=== PATIENT | female | born 2000 | race Caucasian/White ===

== ENCOUNTER 2019-08-05 12:05 | Emergency (ER) | payer OTHER ==
[~2019-08-05] VITALS: Ht 160 cm; Wt 59.0 kg
[2019-08-05 12:15] VITALS: BP 107/66
[2019-08-05 13:09] LABS: MONONUCLEOSIS PATIENT NEGATIVE (NEGATIVE)
--- NOTE | 2019-08-05 14:14 | PHYS DOC ---
Past History Past Medical History: No Pertinent History Past Surgical History: No Surgical History Alcohol Use: None Adult General Chief Complaint Chief Complaint: SORE THROAT HPI HPI 18-year-old female presents with sore throat, cough, body aches for the last 5 days. Her symptoms were mild so she did not think much of it. The last couple days she is felt more fatigued and had more cramping along with her sore throat. A few people at work have had strep so she wanted to get checked for strep throat. The patient does work as a guard in a shelter. They do believe they now have 1 positive coronavirus person in the shelter. She does not know who that is and she does not know if she is come in contact with that person. She has a roommate who is also sick with a similar illness. She does not have a fever today, but had a low-grade fever yesterday. She has no other complaints at this time. Review of Systems Review of Systems Constitutional: Fever [] Eyes: Denies change in visual acuity, redness, or eye pain [] HENT: sore throat [] Respiratory: Cough without shortness of breath [] Cardiovascular: No additional information not addressed in HPI [] GI: Denies abdominal pain, nausea, vomiting, bloody stools or diarrhea [] : Denies dysuria or hematuria [] Musculoskeletal: Denies back pain or joint pain [] Integument: Denies rash or skin lesions [] Neurologic: Denies headache, focal weakness or sensory changes [] Endocrine: Denies polyuria or polydipsia [] All other systems were reviewed and found to be within normal limits, except as documented in this note. Allergies Allergies Allergies Coded Allergies Type Severity Reaction Last Updated Verified No Known Drug Allergies 08/05/19 No Physical Exam Physical Exam Constitutional: Well developed, well nourished, no acute distress, non-toxic appearance. [] HENT: Normocephalic, atraumatic, bilateral external ears normal, oropharynx mildly erythematous, no oral exudates, nose normal. [] Eyes: PERRLA, EOMI, conjunctiva normal, no discharge. [] Neck: Normal range of motion, no tenderness, supple, no stridor. [] Cardiovascular: Heart rate regular rhythm, no murmur [] Lungs & Thorax: Bilateral breath sounds clear to auscultation [] Abdomen: Bowel sounds normal, soft, no tenderness, no masses, no pulsatile masses. [] Skin: Warm, dry, no erythema, no rash. [] Back: No tenderness, no CVA tenderness. [] Extremities: No tenderness, no cyanosis, no clubbing, ROM intact, no edema. [] Neurologic: Alert and oriented X 3, normal motor function, normal sensory function, no focal deficits noted. [] Psychologic: Affect normal, judgement normal, mood normal. [] Current Patient Data Vital Signs Vital Signs Date Time Temp Pulse Resp B/P (MAP) Pulse Ox O2 Delivery O2 Flow Rate FiO2 08/05/19 12:15 97.9 75 18 107/66 (80) 99 Room Air Lab Results Laboratory Tests Test 08/05/19 12:42 08/05/19 12:52 Group A Streptococcus Rapid Negative (NEGATIVE) Heterophil Agglutinins Negative (NEGATIVE) EKG EKG [] Radiology/Procedures Radiology/Procedures [] Course & Med Decision Making Course & Med Decision Making Pertinent Labs and Imaging studies reviewed. (See chart for details) The patient's symptoms are concerning for COVID 19. Her rapid strep is negative. Mononucleosis is negative. In her age group mild symptoms are very common. I have advised that she go ahead and quarantine herself as well as her roommate until they are both completely well for at least 3 days. The patient is in agreement with this plan. If her condition worsens she will call her physician. She is stable for discharge at this time. [] Dragon Disclaimer Dragon Disclaimer This electronic medical record was generated, in whole or in part, using a voice recognition dictation system. Departure Departure: Impression: Primary Impression: COVID-19 Disposition: HOME, SELF-CARE Condition: STABLE Referrals: PCP,UNKNOWN (PCP) Patient Instructions: Viral Syndrome Additional Instructions: You should self quarantine at home. Wear a mask as much as possible. Definitely wear a mask if you have to leave your household. You should not go back to work or be around other people until you are completely symptom-free for at least 3 days. If your condition worsens, you should call your physician or local emergency room first. If you believe you have a life-threatening change in your illness, dial 911. LARISA DAILY DO Aug 05, 2019 14:14
== END 2019-08-05 14:20 | disposition home or self-care (01) ==
LOC: ER 12:05
DX: U07.1 COVID-19 (principal); J02.9 Acute pharyngitis, unspecified
CPT/HCPCS: 86308; 87070; 87880; 99283

== ENCOUNTER 2020-03-10 17:21 | Emergency (ER) | payer OTHER ==
[~2020-03-10] VITALS: Ht 160 cm; Wt 61.0 kg
[2020-03-10 18:58] LABS: BASO % 0 % (0-3); EOS # 0.3 x10^3/uL (0.0-0.7); EOS % 3 % (0-3); HEMATOCRIT 40.2 % (36.0-47.0); HEMOGLOBIN 13.7 g/dL (12.0-15.5); LYMPH # 2.1 x10^3/uL (1.0-4.8); LYMPH % 21 % (24-48); MEAN CORPUSCULAR HEMOGLOBIN 32 pg (25-35); MEAN CORPUSCULAR HGB CONC 34 g/dL (31-37); MEAN CORPUSCULAR VOLUME 93 fL (79-100); MONO # 0.7 x10^3/uL (0.0-1.1); MONO % 7 % (0-9); NEUT # 6.8 x10^3uL (1.8-7.7); NEUT % 68 % (31-73); PLATELET COUNT 280 x10^3/uL (140-400); RED BLOOD COUNT 4.34 x10^6/uL (3.50-5.40); RED CELL DISTRIBUTION WIDTH 12.4 % (11.5-14.5); WHITE BLOOD COUNT 9.9 x10^3/uL (4.0-11.0)
--- NOTE | 2020-03-10 18:58 | PHYS DOC ---
Past History Past Medical History: No Pertinent History (MEHRDAD GEE APRN) Past Surgical History: No Surgical History, Other Additional Past Surgical Histo: Hysteroscopy 01/19/2020 (MEHRDAD GEE APRN) Alcohol Use: None (MEHRDAD GEE APRN) Adult General Chief Complaint Chief Complaint: [facility]ED[facility] HPI Patient is a 19-year-old female patient presents with vaginal bleeding. Patient reports over the last couple days, she has had some spotting, however the last 2 days she has had more more vaginal bleeding. States been less heavy than usual. States she just had a cystoscopy recently in January during which a polyp was removed. States she has had no issues since then, however she has also not had menstrual cycles on the time. Reports she has been on control, however is has been switching control medications several times for the last 2 months, last switched right before her procedure. States she continues to be sexually active. Denies any dysuria, denies any other vaginal symptoms. States she is more concerned because she has not had a menstrual cycle since her procedure and this seemed to be little more bleeding than usual. Patient denies additional complaints (MEHRDAD GEE APRN) Review of Systems Review of Systems Constitutional: Denies fever or chills [] Eyes: Denies change in visual acuity, redness, or eye pain [] HENT: Denies nasal congestion or sore throat [] Respiratory: Denies cough or shortness of breath [] Cardiovascular: No additional information not addressed in HPI [] GI: Denies abdominal pain, nausea, vomiting, bloody stools or diarrhea [] : Denies dysuria or hematuria [does report vaginal bleeding and lower abdominal cramping since yesterday] Musculoskeletal: Denies back pain or joint pain [] Integument: Denies rash or skin lesions [] Neurologic: Denies headache, focal weakness or sensory changes [] Endocrine: Denies polyuria or polydipsia [] All other systems were reviewed and found to be within normal limits, except as documented in this note. (MEHRDAD GEE APRN) Allergies Allergies Allergies Coded Allergies Type Severity Reaction Last Updated Verified No Known Drug Allergies 03/10/20 No (MEHRDAD GEE APRN) Physical Exam Physical Exam Constitutional: Well developed, well nourished, no acute distress, non-toxic appearance. [] HENT: Normocephalic, atraumatic, bilateral external ears normal, oropharynx moist, no oral exudates, nose normal. [] Eyes: PERRLA, EOMI, conjunctiva normal, no discharge. [] Neck: Normal range of motion, no tenderness, supple, no stridor. [] Cardiovascular:Heart rate regular rhythm, no murmur [] Lungs & Thorax: Bilateral breath sounds clear to auscultation [] Abdomen: Bowel sounds normal, soft, no tenderness, no masses, no pulsatile masses. [] Skin: Warm, dry, no erythema, no rash. [] Back: No tenderness, no CVA tenderness. [] Extremities: No tenderness, no cyanosis, no clubbing, ROM intact, no edema. [] Neurologic: Alert and oriented X 3, normal motor function, normal sensory function, no focal deficits noted. [] Psychologic: Affect normal, judgement normal, mood normal. [] (MEHRDAD GEE APRN) Current Patient Data Vital Signs Vital Signs Date Time Temp Pulse Resp B/P (MAP) Pulse Ox O2 Delivery O2 Flow Rate FiO2 03/10/20 17:35 97.9 88 14 124/73 (90) 98 Lab Results Laboratory Tests Test 03/10/20 18:00 POC Urine HCG, Qualitative hcg positive (Negative) (MEHRDAD GEE APRN) EKG EKG [] (MEHRDAD GEE APRN) Radiology/Procedures Radiology/Procedures PROCEDURE: OB <14 WKS W/TV EXAM: First Trimester OB Ultrasound INDICATION: Reason: Vaginal bleeding in / Spl. Instructions: / History: Vaginal bleeding with positive hCG. Patient believes her LMP was in January but is not sure which day. TECHNIQUE: Real-time first trimester obstetrical ultrasound was performed with permanent freeze-frame documentation. COMPARISON: None. FINDINGS: GESTATIONAL SAC: No intrauterine gestation is identified. POLE: Not visualized No yolk sac identified CROWN RUMP LENGTH: Not applicable HEART RATE: Not applicable PLACENTA: Not visualized MATERNAL UTERUS: Uterus measures 7.8 x 4.5 x 3.8 cm. MATERNAL ADNEXA: The right ovary measures 2.9 x 1.5 x 1.9 cm and shows normal blood flow. No right adnexal mass. The left ovary measures 2.6 x 1.7 x 1.4 cm and demonstrates normal blood flow. No left adnexal mass. No pelvic free fluid. AGE/DATES: Gestational Age by LMP: Uncertain Gestational Age by US: Not determined EDC by LMP: Uncertain EDC by US: Undetermined IMPRESSION: No intrauterine gestation or evidence of an adnexal mass. Recommend correlation with serial beta hCG measurements and follow-up ultrasound as clinically appropriate.. Electronically signed by: Ike Aguilar MD (03/10/2020 8:20 PM) [facility] (MEHRDAD GEE APRN) Heart Score Risk Factors: Risk Factors: DM, Current or recent (<one month) smoker, HTN, HLP, family history of CAD, obesity. Risk Scores: Risk Factors: DM, Current or recent (<one month) smoker, HTN, HLP, family history of CAD, obesity. (MEHRDAD GEE APRN) Course & Med Decision Making Course & Med Decision Making Pertinent Labs and Imaging studies reviewed. (See chart for details) [] Reviewed results with patient, with positive urine , low hCG. Discussed importance of follow-up with primary care for repeat hCG evaluation. Patient reports she has O+ blood type. Patient has plan for follow-up with primary care in agreement with plan for discharge. No further questions or concerns (MEHRDAD GEE APRN) Dragon Disclaimer Dragon Disclaimer This electronic medical record was generated, in whole or in part, using a voice recognition dictation system. (MEHRDAD GEE APRN) Departure Departure: Impression: Primary Impression: Vaginal bleeding affecting early Additional Impression: Threatened in early Disposition: 01 DC HOME SELF CARE/HOMELESS Condition: GOOD Referrals: PCP,UNKNOWN (PCP) Patient Instructions: Threatened Miscarriage, Vaginal Bleeding During , First Trimester Additional Instructions: Today we checked your urine, and it showed a positive . We did a blood test to see how far along you are and it is showing you are between 1 and 2 weeks . We do this by evaluation of the hCG blood test. Less than 1 week the results will be 0-50. 1 week to 2 weeks to be 50-1000. Your level today was 51. In early , this number rises rapidly as the progresses. The number will decrease in early with a nonviable . In 2 to 3 days, you should follow-up with your primary care provider, for an outpatient blood test on your hCG to find your level at that time and determine if it is a viable or not. Your ultrasound today did not show a fetus or any potential tubal . It is recommended if your hCG levels are increasing that you have another ultrasound in a little while to follow-up on the . This can be done either through your primary care provider or throat RELATIONS SPECIALIST. With the , you should start to take vitamins every day. If you have any discomfort, you may take Tylenol. Do not take ibuprofen during . The cause of your bleeding today is potentially from an early implantation of the fertilized egg to your uterus or could be related to a nonviable . The follow-up blood test will help differentiate which it is Dragon Disclaimer This chart was dictated in whole or in part using Voice Recognition software in a busy, high-work load, and often noisy Emergency Department environment. It may contain unintended and wholly unrecognized errors or omissions. (RACQUEL TORRE MD) Attending Signature Attending Signature I have participated in the care of this patient and I have reviewed and agree with all pertinent clinical information above including history, exam, and recommendations. (RACQUEL TORRE MD) Problem Qualifiers MEHRDAD GEE APRN Mar 10, 2020 18:57 RACQUEL TORRE MD Mar 10, 2020 23:14
[2020-03-10 19:00] LABS: COLOR,URINE RED
[2020-03-10 19:01] LABS: BILIRUBIN,URINE NEG (NEG); CLARITY,URINE TURBID; GLUCOSE,URINE NEG (NEG); NITRITE,URINE POS (NEG)
[2020-03-10 19:02] LABS: BACTERIA,URINE MOD /HPF (0-FEW); RBC,URINE TNTC /HPF (0-2); SQUAMOUS EPITHELIAL CELL,UR FEW /LPF
[2020-03-10 19:02] LABS: CALCIUM 9.6 mg/dL (8.5-10.1); CREATININE 0.7 mg/dL (0.6-1.0); GFR 106.7; POTASSIUM 3.4 mmol/L (3.5-5.1)
[2020-03-10 19:08] LABS: ALBUMIN 3.7 g/dL (3.4-5.0); ALBUMIN/GLOBULIN RATIO 1.1 (1.0-1.7); TOTAL BILIRUBIN 0.8 mg/dL (0.2-1.0); TOTAL PROTEIN 7.2 g/dL (6.4-8.2)
--- NOTE | 2020-03-10 20:23 | RAD ---
EXAM: First Trimester OB Ultrasound INDICATION: Reason: Vaginal bleeding in / Spl. Instructions: / History: Vaginal bleeding with positive hCG. Patient believes her LMP was in January but is not sure which day. TECHNIQUE: Real-time first trimester obstetrical ultrasound was performed with permanent freeze-frame documentation. COMPARISON: None. FINDINGS: GESTATIONAL SAC: No intrauterine gestation is identified. POLE: Not visualized No yolk sac identified CROWN RUMP LENGTH: Not applicable HEART RATE: Not applicable PLACENTA: Not visualized MATERNAL UTERUS: Uterus measures 7.8 x 4.5 x 3.8 cm. MATERNAL ADNEXA: The right ovary measures 2.9 x 1.5 x 1.9 cm and shows normal blood flow. No right adnexal mass. The left ovary measures 2.6 x 1.7 x 1.4 cm and demonstrates normal blood flow. No left adnexal mass. No pelvic free fluid. AGE/DATES: Gestational Age by LMP: Uncertain Gestational Age by US: Not determined EDC by LMP: Uncertain EDC by US: Undetermined IMPRESSION: No intrauterine gestation or evidence of an adnexal mass. Recommend correlation with serial beta hCG measurements and follow-up ultrasound as clinically appropriate.. Electronically signed by: Ike Aguilar MD (03/10/2020 8:20 PM) [facility]
[2020-03-10 21:30] VITALS: BP 124/77
== END 2020-03-10 21:30 | disposition home or self-care (01) ==
LOC: ER 17:21
DX: O20.0 Threatened abortion (principal); R10.30 Lower abdominal pain, unspecified; Z90.710 Acquired absence of both cervix and uterus
CPT/HCPCS: 36415; 76801; 76817; 80053; 81001; 81025; 84702; 85025; 87086; 99284

== ENCOUNTER → 2021-01-25 | Outpatient (CLI) | payer OTHER ==
[2021-01-25 10:47] LABS: BASO % 1 % (0-3); EOS # 0.2 x10^3/uL (0.0-0.7); EOS % 3 % (0-3); HEMATOCRIT 37.7 % (36.0-47.0); LYMPH # 2.3 x10^3/uL (1.0-4.8); LYMPH % 46 % (24-48); MEAN CORPUSCULAR HEMOGLOBIN 32 pg (25-35); MEAN CORPUSCULAR HGB CONC 34 g/dL (31-37); MEAN CORPUSCULAR VOLUME 92 fL (79-100); MONO # 0.3 x10^3/uL (0.0-1.1); MONO % 7 % (0-9); NEUT # 2.2 x10^3uL (1.8-7.7); NEUT % 43 % (31-73); PLATELET COUNT 231 x10^3/uL (140-400); RED BLOOD COUNT 4.12 x10^6/uL (3.50-5.40); RED CELL DISTRIBUTION WIDTH 12.4 % (11.5-14.5); WHITE BLOOD COUNT 5.1 x10^3/uL (4.0-11.0)
[2021-01-25 10:53] LABS: ALBUMIN 4.1 g/dL (3.4-5.0); ALBUMIN/GLOBULIN RATIO 1.2 (1.0-1.7); CREATININE 0.7 mg/dL (0.6-1.0); GFR 105.6; POTASSIUM 3.9 mmol/L (3.5-5.1); TOTAL BILIRUBIN 0.9 mg/dL (0.2-1.0); TOTAL PROTEIN 7.6 g/dL (6.4-8.2)
[2021-01-25 22:09] LABS: FSH 3.3 mIU/mL (.); LUTEINIZING HORMONE 2.9 mIU/mL (.); PROLACTIN 14.5 ng/mL (4.8-23.3)
[2021-01-25 23:09] LABS: HOMOCYTSINE LEVEL 9.7 umol/L (0.0-14.5)
[2021-01-26 01:10] LABS: HEMOGLOBIN A1C 5.1 % (4.8-5.6)
[2021-01-26 09:12] LABS: INSULIN LEVEL 10.1 uIU/mL (2.6-24.9)
[2021-01-26 18:50] LABS: THYROID STIM HORMONE (TSH) 1.869 uIU/mL (0.358-3.740)
[2021-01-27 10:09] LABS: TOXOPLASMA IGG <3.0 IU/mL (0.0-7.1); TOXOPLASMA IGM <3.0 AU/mL (0.0-7.9)
[2021-01-29 20:08] LABS: ANA INTERP Negative (.)
[2021-02-02 12:12] LABS: TESTOSTERONE FREE 0.18 ng/dL (0.10-0.85); TESTOSTERONE TOTAL 15 ng/dL (13-71)
== END ==
LOC: LAB 08:48
PROVIDERS: ATTEND Obstetrics & Gynecology
DX: N92.0 Excessive and frequent menstruation with regular cycle (principal); Z68.20 Body mass index [BMI] 20.0-20.9, adult
CPT/HCPCS: 36415; 80053; 80061; 81241; 82627; 82652; 83001; 83002; 83036; 83090; 83525; 84146; 84402; 84403; 84443; 85025; 85730; 86038; 86762; 86777; 86778

== ENCOUNTER 2021-02-24 17:18 | Emergency (ER) | payer OTHER ==
[~2021-02-24] VITALS: Ht 160 cm; Wt 52.5 kg
[2021-02-24 17:44] VITALS: BP 122/67
[2021-02-24 19:30] LABS: BASO % 1 % (0-3); CREATININE 0.5 mg/dL (0.6-1.0); EOS # 0.2 x10^3/uL (0.0-0.7); EOS % 3 % (0-3); GFR 155.7; HEMATOCRIT 36.4 % (36.0-47.0); HEMOGLOBIN 12.4 g/dL (12.0-15.5); LYMPH # 2.2 x10^3/uL (1.0-4.8); LYMPH % 37 % (24-48); MEAN CORPUSCULAR HEMOGLOBIN 32 pg (25-35); MEAN CORPUSCULAR HGB CONC 34 g/dL (31-37); MEAN CORPUSCULAR VOLUME 93 fL (79-100); MONO # 0.5 x10^3/uL (0.0-1.1); MONO % 9 % (0-9); NEUT # 3.1 x10^3uL (1.8-7.7); NEUT % 51 % (31-73); PLATELET COUNT 234 x10^3/uL (140-400); POTASSIUM 3.9 mmol/L (3.5-5.1); RED BLOOD COUNT 3.91 x10^6/uL (3.50-5.40); RED CELL DISTRIBUTION WIDTH 12.8 % (11.5-14.5); WHITE BLOOD COUNT 6.1 x10^3/uL (4.0-11.0)
[2021-02-24 20:02] LABS: BACTERIA,URINE MOD /HPF (0-FEW); BILIRUBIN,URINE NEG (NEG); CLARITY,URINE CLOUDY; COLOR,URINE YELLOW; GLUCOSE,URINE NEG (NEG); NITRITE,URINE NEG (NEG); SQUAMOUS EPITHELIAL CELL,UR MANY /LPF; UROBILINOGEN,URINE 0.2 mg/dL (0.2 mg/dL)
--- NOTE | 2021-02-24 21:03 | PHYS DOC ---
Past History Past Medical History: No Pertinent History Additional Past Medical Histor: PREVIOUS MISCARRAGE (MARISELA MELLO APRN) Past Surgical History: No Surgical History Additional Past Surgical Histo: Hysteroscopy 01/19/2020 (MARISELA MELLO APRN) Alcohol Use: None (MARISELA MELLO APRN) Adult General Chief Complaint Chief Complaint: ABDOMINAL PAIN IN HPI HPI Patient is a 20-year-old female presents to the emergency department concerning vaginal bleeding with . Patient reports he is 6 weeks , had a normal IUP ultrasound a few days ago with her [employer], has a due date of October 122021. Patient reports G2, P0 with a spontaneous at 2 weeks gestation on first . Patient reports having low pelvic pain that started yesterday and noticing passing clots approximately an hour and a half prior to arrival. Patient denies other physical complaints or physical concerns. Patient reports blood type O+. (MARISELA MELLO APRN) Review of Systems Review of Systems 14 body systems of review of systems have been reviewed. See HPI for pertinent positives and negative responses, otherwise all other systems are negative, nonpertinent or noncontributory. Constitutional: Negative except as outlined in HPI above. Skin: Negative except as outlined in HPI above. Eyes: Negative except as outlined in HPI above. HENT: Negative except as outlined in HPI above. Respiratory: Negative except as outlined in HPI above. Cardiovascular: Negative except as outlined in HPI above. GI: Negative except as outlined in HPI above. : Negative except as outlined in HPI above. Musculoskeletal: Negative except as outlined in HPI above. Integument: Negative except as outlined in HPI above. Neurologic: Negative except as outlined in HPI above. Endocrine: Negative except as outlined in HPI above. Lymphatic: Negative except as outlined in HPI above. Psychiatric: Negative except as outlined in HPI above. (MARISELA MELLO APRN) Allergies Allergies Allergies Coded Allergies Type Severity Reaction Last Updated Verified No Known Drug Allergies 03/10/20 No (MARISELA MELLO APRN) Physical Exam Physical Exam Constitutional: Well developed, well nourished, no acute distress, non-toxic appearance. 20-year-old female in no apparent distress. HENT: Normocephalic, atraumatic. Eyes: Conjunctiva normal, no discharge. Neck: Normal range of motion, no stridor. Cardiovascular: No cyanosis appreciated, distal cap refill less than 2 seconds. Lungs & Thorax: Patient is in no respiratory distress, no audible adventitious lung sounds appreciated. Abdomen: Nontender, no abnormalities noted. Skin: Warm, dry, no erythema, no rash. Back: No tenderness, no deformities. Extremities: No tenderness, no cyanosis, no clubbing, ROM intact, no edema. Neurologic: Alert and oriented X 3, normal motor function, normal sensory function, no focal deficits noted. Psychologic: Affect normal, judgement normal, mood normal. (MARISELA MELLO APRN) Current Patient Data Vital Signs Vital Signs Date Time Temp Pulse Resp B/P (MAP) Pulse Ox O2 Delivery O2 Flow Rate FiO2 02/24/21 17:44 98.1 80 20 122/67 (85) 98 Lab Results Laboratory Tests Test 02/24/21 17:55 02/24/21 18:13 02/24/21 18:51 Urine Collection Type Unknown Urine Color Yellow Urine Clarity Cloudy Urine pH 7.0 Urine Specific [place] 1.020 Urine Protein Neg (NEG-TRACE) Urine Glucose (UA) Neg mg/dL (NEG) Urine Ketones (Stick) Neg mg/dL (NEG) Urine Blood Large (NEG) Urine Nitrite Neg (NEG) Urine Bilirubin Neg (NEG) Urine Urobilinogen Dipstick 0.2 mg/dL (0.2 mg/dL) Urine Leukocyte Esterase Large (NEG) Urine RBC 1-2 /HPF (0-2) Urine WBC 11-20 /HPF (0-4) Urine Squamous Epithelial Cells Many /LPF Urine Bacteria Mod /HPF (0-FEW) POC Urine HCG, Qualitative hcg positive (Negative) White Blood Count 6.1 x10^3/uL (4.0-11.0) Red Blood Count 3.91 x10^6/uL (3.50-5.40) Hemoglobin 12.4 g/dL (12.0-15.5) Hematocrit 36.4 % (36.0-47.0) Mean Corpuscular Volume 93 fL (79-100) Mean Corpuscular Hemoglobin 32 pg (25-35) Mean Corpuscular Hemoglobin Concent 34 g/dL (31-37) Red Cell Distribution Width 12.8 % (11.5-14.5) Platelet Count 234 x10^3/uL (140-400) Neutrophils (%) (Auto) 51 % (31-73) Lymphocytes (%) (Auto) 37 % (24-48) Monocytes (%) (Auto) 9 % (0-9) Eosinophils (%) (Auto) 3 % (0-3) Basophils (%) (Auto) 1 % (0-3) Neutrophils # (Auto) 3.1 x10^3uL (1.8-7.7) Lymphocytes # (Auto) 2.2 x10^3/uL (1.0-4.8) Monocytes # (Auto) 0.5 x10^3/uL (0.0-1.1) Eosinophils # (Auto) 0.2 x10^3/uL (0.0-0.7) Basophils # (Auto) 0.0 x10^3/uL (0.0-0.2) Maternal Serum HCG Beta Subunit 1690 mIU/mL (0-6) H Sodium Level 138 mmol/L (136-145) Potassium Level 3.9 mmol/L (3.5-5.1) Chloride Level 103 mmol/L (98-107) Carbon Dioxide Level 24 mmol/L (21-32) Anion Gap 11 (6-14) Blood Urea Nitrogen 7 mg/dL (7-20) Creatinine 0.5 mg/dL (0.6-1.0) L Estimated GFR (Cockcroft-Gault) 155.7 Glucose Level 83 mg/dL (70-99) Calcium Level 9.0 mg/dL (8.5-10.1) (MARISELA MELLO APRN) EKG EKG [] (MARISELA MELLO APRN) Radiology/Procedures Radiology/Procedures [] (MARISELA MELLO APRN) Heart Score C/O Chest Pain: No Risk Factors: Risk Factors: DM, Current or recent (<one month) smoker, HTN, HLP, family history of CAD, obesity. Risk Scores: Risk Factors: DM, Current or recent (<one month) smoker, HTN, HLP, family history of CAD, obesity. (MARISELA MELLO APRN) Course & Med Decision Making Course & Med Decision Making Pertinent Labs and Imaging studies reviewed. (See chart for details) 20-year-old female, vital signs reviewed, resents emergency department concerning threatened miscarriage. Will order CBC, BMP, urinalysis assay, beta hCG quant. Patient reports blood type as O+, not a candidate for RhoGam. Discussed with patient symptoms are consistent with threatened miscarriage, reasons for ordering beta-hCG quant for repeat in 3 days, patient is amenable to ED planning. Patient's hCG quant 1690, this is concerningly low most likely a threatened miscarriage, the patient's urine is infected, will prescribe p.o. antibiotics. Discussed findings with patient, strict follow-up with OB care in 3 days for repeat hCG quant. Discussed recommend did pelvic examination, patient has refused this stating she feels that she knows she is having a miscarriage, otherwise patient is amenable to ED discharge planning. Discussed with the patient all findings and diagnostic testing as well as the need to follow-up with their primary care provider for further evaluation and treatment or return to the ED if any new or worsening symptoms. Strict return precautions were also discussed at length, the patient voiced understanding and agreement with the discharge planning. The patient was nontoxic in appearance, in no apparent distress, and hemodynamically stable at the time of disposition. (MARISELA MELLO APRN) Dragon Disclaimer Dragon Disclaimer This electronic medical record was generated, in whole or in part, using a voice recognition dictation system. (MARISELA MELLO APRN) Departure Departure: Impression: Primary Impression: Threatened miscarriage Additional Impressions: Vaginal bleeding affecting early Urinary tract infection Disposition: HOME / SELF CARE / HOMELESS Condition: GOOD Referrals: PCP,UNKNOWN (PCP) Patient Instructions: - Urinary Tract Infection, Threatened Miscarriage Additional Instructions: You are seen today in the emergency department for vaginal bleeding during . A beta hCG quant level was drawn today, this level is 1690, please follow-up with your [employer] in 3 days for repeat hCG level draw. As we discussed, your urine does show signs of urinary tract infection. I have started you on a antibiotic take as directed. Please return to the emergency department for worsening symptoms or other concerns. Thank you for visiting our Emergency Department. It was a pleasure taking care of you today in the emergency department and we appreciate you trusting us with your care. If any additional problems come up don't hesitate to return to visit us. Please follow up with your primary care provider so they can plan additional care if needed and know about the problem that you had. If symptoms worsen come back to the Emergency Department. Any concerning symptoms that start such as chest pain, shortness of air, weakness or numbness on one side of the body, running high fevers or any other concerning symptoms return to the ER. Scripts Cephalexin (KEFLEX) 500 Mg Capsule 1 CAP PO TID for uti for 7 Days, #21 CAP Prov: MARISELA MELLO APRN 02/24/21 Attending Signature Attending Signature I have participated in the care of this patient and I have reviewed and agree with all pertinent clinical information above including history, exam, and recommendations. (RACQUEL TORRE MD) Problem Qualifiers Additional Impressions: Urinary tract infection Urinary tract infection type: site unspecified Hematuria presence: with hematuria Qualified Codes: N39.0 - Urinary tract infection, site not specified; R31.9 - Hematuria, unspecified MARISELA MELLO APRN Feb 24, 2021 21:03 RACQUEL TORRE MD Feb 25, 2021 03:07
[2021-02-24] MEDS ORDERED: CEPH500C PO ×2 (21:12→21:26)
== END 2021-02-24 21:25 | disposition home or self-care (01) ==
LOC: ER 17:18
DX: O20.0 Threatened abortion (principal); O23.41 Unspecified infection of urinary tract in pregnancy, first trimester; N39.0 Urinary tract infection, site not specified; Z3A.01 Less than 8 weeks gestation of pregnancy
CPT/HCPCS: 36415; 80048; 81001; 81025; 84702; 85025; 87086; 99283-25

== ENCOUNTER 2021-03-04 18:44 | Emergency (ER) | payer OTHER ==
[~2021-03-04] VITALS: Ht 160 cm; Wt 52.6 kg
[~2021-03-04 18:44] MED LIST: CEPH500C PO
--- NOTE | 2021-03-04 19:24 | PHYS DOC ---
Past History Past Medical History: No Pertinent History Additional Past Medical Histor: PREVIOUS MISCARRAGE Past Surgical History: No Surgical History Additional Past Surgical Histo: Hysteroscopy 01/19/2020 Alcohol Use: None Adult General Chief Complaint Chief Complaint: VAGINAL BLEEDING HPI HPI Patient is a 20-year-old female, G2, P0 at 6 weeks gestation per ultrasound who presents with a chief complaint of vaginal bleeding. States that she has had some spotting over the last week that she noticed when she was wiping and called her DIVISION LEADER on Friday and made an appointment for tomorrow and was told to go to the emergency department if the bleeding increased. States that the bleeding has increased some and she is going through about 3 pads a day. States that she has some very mild abdominal cramping but otherwise denies headache, chest pain, shortness of breath, abdominal pain, nausea, vomiting, dysuria, diarrhea. Denies any history of STIs. Denies any vaginal discharge before the bleeding. Denies any alcohol or drug use. Denies any recent travel, traumas, fevers or illnesses. Denies any known ill contacts. States that her blood type is O+. States she is currently on Keflex for urinary tract infection. States her OB also has her on progestin. Review of Systems Review of Systems Review of systems otherwise unremarkable except noted in HPI Allergies Allergies Allergies Coded Allergies Type Severity Reaction Last Updated Verified No Known Drug Allergies 03/10/20 No Physical Exam Physical Exam Constitutional: Well developed, well nourished, no acute distress, non-toxic appearance. [] HENT: Normocephalic, atraumatic, Eyes: conjunctiva normal, no discharge. [] Neck: Normal range of motion, no tenderness, supple, no stridor. [] Cardiovascular:Heart rate regular rhythm, no murmur [] Lungs & Thorax: Bilateral breath sounds clear to auscultation [] Abdomen: soft, no tenderness, no masses, no pulsatile masses. : [] Skin: Warm, dry, no erythema, no rash. [] Back: no CVA tenderness. [] Extremities: No tenderness, no cyanosis, no clubbing, ROM intact, no edema. [] Neurologic: Alert and oriented X 3, normal motor function, normal sensory function, no focal deficits noted. [] Psychologic: Affect normal, judgement normal, mood normal. [] EKG EKG [] Radiology/Procedures Radiology/Procedures [] Transvaginal OB ultrasound HISTORY: Vaginal bleeding and positive test Transvaginal ultrasound ultrasound examination of the pelvis was performed and multiple static images were obtained. FINDINGS: The uterus measures 8.8 x 5.0 x 3.7 cm and appears normal. The endometrium appears normal measures 10 mm in thickness. The ovaries appear normal normal blood flow bilaterally. The right ovary measures 2.8 x 1.8 x 1.7 cm per the left ovary measures 2.5 x 1 6 x 1.4 cm. The cervix appears normal. There is no free fluid. IMPRESSION: No seen. No suspicious findings. Recommend correlation with serial quantitative beta hCG. If the continues a short-term follow-up study should be performed when the patient is 6 weeks . Electronically signed by: Monster Hickman III, MD (03/04/2021 9:09 PM) [facility] Heart Score C/O Chest Pain: No Risk Factors: Risk Factors: DM, Current or recent (<one month) smoker, HTN, HLP, family history of CAD, obesity. Risk Scores: Risk Factors: DM, Current or recent (<one month) smoker, HTN, HLP, family history of CAD, obesity. Course & Med Decision Making Course & Med Decision Making Patient is a 20-year-old female, G2, P0 at 6 weeks who presents with vaginal ble eding Vital signs not concerning. Physical exam noted above. Patient given Tylenol. Had a normal ultrasound last week. Patient O+ blood type. On progestin. On Keflex day 4 for UTI. [] Dragon Disclaimer Dragon Disclaimer This electronic medical record was generated, in whole or in part, using a voice recognition dictation system. Departure Departure: Impression: Primary Impression: Vaginal bleeding affecting early Disposition: HOME / SELF CARE / HOMELESS Condition: STABLE Referrals: PCP,UNKNOWN (PCP) SHAWNA PEREZ Patient Instructions: Miscarriage, [id number], Vaginal Bleeding During , First Trimester Additional Instructions: Thank you for coming into the emergency department tonight and allowing us to take care of you. Please read the attached information carefully go back over some of the things we discussed. You are given a copy of your ultrasound report which did not show a or suspicious findings. As discussed, with the vaginal bleeding and closed cervical os it is possible that you have had a com pleted miscarriage. However, it is very important that she keep your appointment in the morning with your DIVISION LEADER to discuss your ED visit and further work-up and evaluation. Please come back to the ED with new or concerning symptoms as we discussed. JOYCE DOZIER MD Mar 04, 2021 19:24
[2021-03-04] MEDS ORDERED: ACETAMINOPHEN 500 MG TABLET PO ONE (19:45)
[2021-03-04] MEDS ORDERED: METOCLOPRAMIDE 10 MG TABLET PO ONE (19:45)
[2021-03-04 20:20] LABS: BASO % 1 % (0-3); EOS # 0.2 x10^3/uL (0.0-0.7); EOS % 3 % (0-3); HEMATOCRIT 36.8 % (36.0-47.0); HEMOGLOBIN 12.6 g/dL (12.0-15.5); LYMPH # 2.7 x10^3/uL (1.0-4.8); LYMPH % 44 % (24-48); MEAN CORPUSCULAR HEMOGLOBIN 32 pg (25-35); MEAN CORPUSCULAR HGB CONC 34 g/dL (31-37); MEAN CORPUSCULAR VOLUME 94 fL (79-100); MONO # 0.5 x10^3/uL (0.0-1.1); MONO % 9 % (0-9); NEUT # 2.7 x10^3uL (1.8-7.7); NEUT % 44 % (31-73); PLATELET COUNT 252 x10^3/uL (140-400); RED BLOOD COUNT 3.91 x10^6/uL (3.50-5.40); RED CELL DISTRIBUTION WIDTH 13.2 % (11.5-14.5); WHITE BLOOD COUNT 6.2 x10^3/uL (4.0-11.0)
--- NOTE | 2021-03-04 21:11 | RAD ---
Transvaginal OB ultrasound HISTORY: Vaginal bleeding and positive test Transvaginal ultrasound ultrasound examination of the pelvis was performed and multiple static images were obtained. FINDINGS: The uterus measures 8.8 x 5.0 x 3.7 cm and appears normal. The endometrium appears normal measures 10 mm in thickness. The ovaries appear normal normal blood flow bilaterally. The right ovary measures 2.8 x 1.8 x 1.7 cm per the left ovary measures 2.5 x 1 6 x 1.4 cm. The cervix appears normal. There is no free fluid. IMPRESSION: No seen. No suspicious findings. Recommend correlation with serial quantitative beta hCG. I f the continues a short-term follow-up study should be performed when the patient is 6 week s . Electronically signed by: Monster Hickman III, MD (03/04/2021 9:09 PM) [facility]
[2021-03-04 21:39] VITALS: BP 110/62
== END 2021-03-04 21:42 | disposition home or self-care (01) ==
LOC: ER 18:44
DX: O46.91 Antepartum hemorrhage, unspecified, first trimester (principal); R10.30 Lower abdominal pain, unspecified; Z3A.01 Less than 8 weeks gestation of pregnancy
CPT/HCPCS: 36415; 76817; 81025; 85025; 99284